=== PATIENT | male | born 1935 | race Caucasian/White ===

== ENCOUNTER 2024-01-07 22:55 | Emergency (ER) | payer MEDICARE, BC, SELFPAY ==
[2024-01-07 23:03] VITALS: BP 116/73
--- NOTE | 2024-01-08 00:45 | ED.GENMED ---
History of Present Illness
General
Chief Complaint: Skin Surface Trauma
Source: patient
Exam Limitations: none
Time Seen by Provider: 01/08/24 00:29
Nursing documentation reviewed up to this point in time: agreed with
History of Present Illness
History of Present Illness:
88-year-old male painful swelling of the right distal index finger doing some work around his motorhome thinks he got some dirt into a scab no puslike drainage she does have arthritis, and swollen joints at baseline he feels some warmth in that area
Past History
Past History
ED Past Medical History: Negative NIDDM
Social History
Tobacco: Non-smoker
Alcohol: None
Drug: None
Personal:
Living: alone
Employment: Retired
Review of Systems
Review of Systems
All Other Systems: Not applicable
Constitutional: Denies fever or fatigue
Musculoskeletal: Reports joint pain
Phy Exam
Physical Exam
Physical Exam:
Physical Exam
General: no apparent distress, not acutely ill
Lungs: no acute respiratory distress.
Neuro: alert and oriented. no focal neurological deficits
Skin: no rash
Psychiatric: cooperative
Extremities: Right hand mild tenderness and warmth distal to the DIP no eponychial swelling no pulp space swelling
Course
Orders/Labs/Results
Orders:
Orders
01/08/24 02:03
Acetaminophen [Tylenol] 650 mg PO NOW STA
Vital Signs
Initial and Last Documented VS:
Initial Vital Signs
Temp Pulse Resp BP Pulse Ox
98 F 63 20 116/73 96
01/07/24 23:03 01/07/24 23:03 01/07/24 23:03 01/07/24 23:03 01/07/24 23:03
Last Documented Vital Signs
Temp Pulse Resp BP Pulse Ox
98 F 63 20 116/73 96
01/07/24 23:03 01/07/24 23:03 01/07/24 23:03 01/07/24 23:03 01/07/24 23:03
Procedures
Digital Block
Location of injection for digital block: base of digit
Indiction for Digital Block: orthopedic procedure
Was sensory exam normal prior to exam?: intack pin prick
Type of anesthesia: 1% Lidocaine w/o EPI
Complications: none- good anesthesia
Other
Indication for procedure:: infection
Procedure completed by: katlyn
Consent form signed: No
Additional Procedure:
Verbal consent, timeout, digital block, #11 blade scab undermined and removed small amount of puslike drainage
Wound soaked in half sterile water half Betadine
MDM/Problems Addressed
Differential Diagnosis Includes:
Cellulitis, paronychia no signs of felon gout, arthritis
MDM/Problems Addressed:
Finger swelling
*Critical Care Note
Total Time (30-74mins, 75-104mins- exclusive of procedures): Not Applicable
ED Attending Note
-
Portions of this chart may have been created with voice recognition software.� Occasional wrong word or��sound alike� substitutions may have occurred due to the inherent limitations of voice recognition software.
Discharge Plan
Departure
Patient Disposition: Home (Routine Discharge)
Date of Disposition: 01/08/24
Time of Disposition: 02:08
Patient with high blood pressure during this ER visit?: No
Condition: Good
Covid-19: Not Applicable
Discharge Problem:
Cellulitis
Instructions: Wound Care (DC), Cellulitis (Skin Infection), Adult ED
Prescriptions:
New
cephalexin 500 mg capsule
500 mg PO Q6H 10 Days Qty: 40 0RF
ibuprofen 400 mg tablet
400 mg PO Q6H PRN (Reason: fever or pain) Qty: 20 0RF
Referrals:
Ritting,Alessandro, MD [Active] - Next open appointment
UNKNOWN - PT DOES,NOT KNOW [Family Provider] -
Interventions
Interventions:
*Risk Screen - Suicide Last Done: 01/07/24 23:03
*General Assessment Last Done: 01/07/24 23:03
*Neglect/Abuse Screening Last Done: 01/07/24 23:03
ED- Fall Risk Assessment Last Done: 01/07/24 23:03
*ED COVID-19 Vaccine History Last Done: 01/07/24 23:03
*Nursing Disposition Last Done: 01/08/24 02:18
ED-Skin Assessment Last Done: 01/08/24 01:30
Discharge Date and Time
Discharge Date/Time: 01/08/24 02:19
Print Language: ROMANSH
== END 2024-01-08 02:19 | disposition home or self-care (01) ==
LOC: EMR 22:55
PROVIDERS: EMERGENCY PHYSICIAN Emergency Medicine
DX: L03.011 Cellulitis of right finger (principal); M79.644 Pain in right finger(s); I25.10 Atherosclerotic heart disease of native coronary artery without angina pectoris; E78.5 Hyperlipidemia, unspecified; N40.0 Benign prostatic hyperplasia without lower urinary tract symptoms; M19.90 Unspecified osteoarthritis, unspecified site; Z98.0 Intestinal bypass and anastomosis status; Z85.46 Personal history of malignant neoplasm of prostate; Z85.038 Personal history of other malignant neoplasm of large intestine; Z90.79 Acquired absence of other genital organ(s)
CPT/HCPCS: 64450; 99284; 10060